=== PATIENT | female | born 1950 | race Hispanic/Latino ===

== ENCOUNTER 2016-12-11 06:53 | Day surgery (SDC) | payer MEDICAID ==
[2016-12-11] MEDS ORDERED: ROBINUL ONE (09:00)
[2016-12-11] MEDS ORDERED: NACL 0.9% 1000 ML 1,000 ML IV SCH (09:00)
[2016-12-11] MEDS ORDERED: XYLOCAINE MPF 2% ONE (09:00)
--- NOTE | 2016-12-11 09:51 | Short Stay Summary ---
Short Stay Documentation Date of service: 12/11/16 Narrative H&P: 66 year old presents for colonoscopy for evaluation of hematochezia. - History Principal diagnosis: hematochezia H&P: obtained from office Past Medical History: other (cervical dysplasia recurrent post LEEP) Past Surgical History: Other (LEEP) Social history: smoking - Allergies and Medications Current Medications: Allergies codeine Adverse Reaction (Verified 12/11/16 08:18) Dizziness Home Medications Medication Instructions Recorded Confirmed Last Taken Type Frumk-Apdgsdn-Alzulhge Tablet 1 tab PO DAILY 12/11/16 12/11/16 12/03/16 History Active Medications Sodium Chloride (Nacl 0.9% 1000 Ml) 1,000 mls @ 50 mls/hr IV DIRECT SHARONA - Physical exam General appearance: no acute distress, well-nourished HEENT: PERRLA, EOMI Lungs: Clear to auscultation Heart: Regular rate, Normal S1, Normal S2 Gastrointestinal: normal, no tenderness, no distended, no masses, no guarding, no organomegaly, no hepatomegaly, no splenomegaly, no obese Extremities: No edema Neurological: Normal speech - Hospital course Hospital course: Uneventful colonoscopy revealed 2.5-3 cm broad based polyp proximal rectum with central dimple, will be referred for EMR (endoscopic mucosal resection.) Additional findings: diverticulosis. - Disposition Condition at discharge: Good Disposition: DISCHARGED TO HOME OR SELFCARE - Discharge Diagnoses (1) Colon polyp Status: Acute Qualifiers: Colon polyp type: C Colon location: C Inflammatory colon polyp complication status: I (2) Diverticulosis Status: Acute Qualifiers: Diverticulosis site: D Diverticulosis bleeding: D (3) Hematochezia Status: Acute Short Stay Discharge Plan Activity: other (no driving today) Diet: regular Additional Instructions: 1. Patient to call to schedule EMR if she does not hear from office staff this week. 2. Repeat colonoscopy in 3 years. 3. Stop smoking. 4. First-degree relatives (siblings, children, parents if in good health) should have colonoscopy beginning age 40 rather than age 50. Follow up with: NATALI CARDOSO MD [Primary Care Provider] - 7 Days
--- NOTE | 2016-12-11 09:57 | Anesthesia Consultation ---
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 Severely chacetic. 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
--- NOTE | 2016-12-11 09:57 | Anesthesia Day of Surgery ---
Anesthesia Day of Surgery - Day of Surgery Patient Examined: Yes Patient H&P Reviewed: Yes Patient is NPO: Yes Beta Blockers: No (vital WNL)
[2016-12-11] MEDS ORDERED: DIPRIVAN 10 MG/ML IV ONE ×2 (10:25)
--- NOTE | 2016-12-11 10:34 | Operative Report ---
Operative Report Operative Report: Date of procedure: 12/11/2016 Preprocedure diagnosis: Hematochezia. No prior colon screening. Post procedure diagnosis: Large rectal polyp, diverticulosis Procedure name(s): Colonoscopy Surgeon: Guerrero Greene MD Anesthesia: Monitored anesthesia care EBL: None Procedure: The indications, techniques, potential complications and alternatives , had been discussed in full detail prior to the date of the exam, and once again on the day of the exam. Questions were encouraged and answered, and consent was thereby obtained. The patient was placed in the left lateral decubitus position, and was medicated by anesthesia services. See the anesthesia records for details. The anal sphincter was digitally dilated. The digital exam was unremarkable. The tip of a [employer] video colonoscope was inserted through the anal sphincter and into the rectal vault. It was advanced proximally and continuous visualization of the lumen to the cecum without difficulty. Abdominal pressure was employed to minimize loop formation and thereby facilitate instrument advancement. The prep was good and landmarks were identified without difficulty. No pathology was seen in the cecum. The appendiceal orifice and ileocecal valve appeared normal. From the cecum, the instrument was slowly withdrawn with careful circumferential examination of the colonic mucosa. A few diverticula were seen in the ascending colon and hepatic flexure. No pathology was seen in the transverse colon, splenic flexure or descending colon. A few diverticula were seen in the sigmoid colon. In the proximal rectum a 2.5-3 cm polyp on a very broad base with a tiny 5 mm sessile satellite lesion, was noted. The mass of the large polyp had a central dimple bothersome for posslible deep invasion. Inspection of the lesion revealed it to be broad-based and it was elected to leave it in place rather than attempt convention snare polypectomy. No other pathology was seen in the remainder of the rectum on forward or retroflexed views. The instrument was fully withdrawn. The procedure was very well tolerated. Postprocedure she was monitored in the recovery area of the GI lab to ensure stability prior to her release. See the outpatient record for details regarding instructions to patient, medications and plans for follow-up. Final diagnosis: 1. Proximal rectal polyp, 2.5-3 cm, large with central dimple suggesting possible invasion, on a very broad base, with small satellite lesion. Will be referred for endoscopic mucosal resection rather than attempting conventional snare polypectomy in this setting. 2. Diverticulosis coli Guerrero Greene M.D. Dictated 12/11/2016 at 10:28 AM
--- NOTE | 2016-12-11 10:40 | Anesthesia Day of Surgery ---
Anesthesia Day of Surgery - Day of Surgery Patient Examined: Yes Patient H&P Reviewed: Yes Patient is NPO: Yes
--- NOTE | 2016-12-11 10:41 | Anesthesia Consultation ---
Anesthesia Consult and Med Hx Date of service: 12/11/16 - Airway Anesthetic Teeth Evaluation: Good ROM Head & Neck: Adequate Mental/Hyoid Distance: Adequate Mallampati Class: Class II Intubation Access Assessment: Probably Good - Pulmonary Exam CTA: Yes - Cardiac Exam Cardiac Exam: RRR - Pre-Operative Health Status ASA Pre-Surgery Classification: ASA2 Proposed Anesthetic Plan: MAC - Pulmonary Hx Smoking: Yes
--- NOTE | 2016-12-11 10:41 | Post Anesthesia Evaluation ---
- Post Anesthesia Evaluation Patient Participated: Yes Airway Patent: Yes Stable Respiratory Function: Yes Nausea/Vomiting: No Temp > 96.8F: Yes Pain Manageable: Yes Adequeate Hydration: Yes Anesthesia Complications: No Block Receding Appropriately: Not Applicable Patient on Ventilator: No
[2016-12-11 11:00] VITALS: BP 115/86
[2016-12-12] MEDS ORDERED: ROBINUL ONE (13:18)
[2016-12-12] MEDS ORDERED: XYLOCAINE MPF 2% ONE (13:18)
== END 2016-12-11 06:54 | disposition home or self-care (01) ==
LOC: GIO 06:53
PROVIDERS: ATTEND Internal Medicine Gastroenterology
DX: K62.1 Rectal polyp (principal); K57.30 Diverticulosis of large intestine without perforation or abscess without bleeding; F17.210 Nicotine dependence, cigarettes, uncomplicated; Z98.890 Other specified postprocedural states
CPT/HCPCS: 45378; J2704; J7030

== ENCOUNTER 2017-12-02 08:37 | Emergency (ER) | payer MEDICAID, MEDICARE ==
[2017-12-02] MEDS ORDERED: CATAPRES PO ONE (09:17)
[2017-12-02] MEDS ORDERED: MOTRIN PO ONE (09:21)
--- NOTE | 2017-12-02 09:21 | Emergency Department Report ---
ED ENT HPI - General Chief complaint: Earache Stated complaint: LEFT EAR PAIN Time Seen by Provider: 12/02/17 09:14 Source: patient Mode of arrival: Ambulatory Limitations: No Limitations - History of Present Illness Initial comments: This is a 67-year-old female nontoxic, well nourished in appearance, no acute signs of distress presents to the ED with c/o of left earache x2 days. Patient stated that she developed decreased hearing the past 2 days. Patient stated tried using OTC peroxide with no relief. Patietn denies mastoid or tragus tenderness. Denies any ear canal drainage. Patient denies any headache, stiff neck, nausea, vomiting, chest pain, shortness of breathe, abdominal pain, dizziness. Patient stated allergies to codeine. Denies significant past medical history. MD complaint: ear pain -: days(s) (2) Location: L ear Severity: mild Severity scale (0 -10): 8 Quality: aching Consistency: constant Improves with: none Worsens with: none Associated Symptoms: denies: fever, cough, gum swelling, toothache, pain with swallowing, sore throat, tinnitus, hearing loss, discharge from ear, rhinorrhea - Related Data Home Medications Medication Instructions Recorded Confirmed Last Taken Tlayq-Ceoabtx-Nwnjpshr Tablet 1 tab PO DAILY 12/11/16 12/11/16 12/03/16 Previous Rx's Medication Instructions Recorded Last Taken Type Amoxicillin [Amoxicillin TAB] 875 mg PO BID #20 tablet 12/02/17 Unknown Rx Ciprofloxacin 0.2%(Nf) 4 drops AD TID #1 droperette 12/02/17 Unknown Rx [Ciprofloxacin Otic 0.2%(Nf)] amLODIPine [Norvasc] 5 mg PO DAILY #30 tab 12/02/17 Unknown Rx Allergies Allergy/AdvReac Type Severity Reaction Status Date / Time codeine AdvReac Dizziness Verified 12/02/17 08:39 ED Dental HPI - General Chief complaint: Earache Stated complaint: LEFT EAR PAIN Time Seen by Provider: 12/02/17 09:14 Source: patient Mode of arrival: Ambulatory Limitations: No Limitations - Related Data Home Medications Medication Instructions Recorded Confirmed Last Taken Fueli-Seywrhz-Nikrpenh Tablet 1 tab PO DAILY 12/11/16 12/11/16 12/03/16 Previous Rx's Medication Instructions Recorded Last Taken Type Amoxicillin [Amoxicillin TAB] 875 mg PO BID #20 tablet 12/02/17 Unknown Rx Ciprofloxacin 0.2%(Nf) 4 drops AD TID #1 droperette 12/02/17 Unknown Rx [Ciprofloxacin Otic 0.2%(Nf)] amLODIPine [Norvasc] 5 mg PO DAILY #30 tab 12/02/17 Unknown Rx Allergies Allergy/AdvReac Type Severity Reaction Status Date / Time codeine AdvReac Dizziness Verified 12/02/17 08:39 ED Review of Systems ROS: Stated complaint: LEFT EAR PAIN Other details as noted in HPI Constitutional: denies: chills, fever Eyes: denies: eye pain, eye discharge, vision change ENT: ear pain. denies: throat pain Respiratory: denies: cough, shortness of breath, wheezing Cardiovascular: denies: chest pain, palpitations Endocrine: no symptoms reported Gastrointestinal: denies: abdominal pain, nausea, diarrhea Genitourinary: denies: urgency, dysuria, discharge Musculoskeletal: denies: back pain, joint swelling, arthralgia Skin: denies: rash, lesions Neurological: denies: headache, weakness, paresthesias Psychiatric: denies: anxiety, depression Hematological/Lymphatic: denies: easy bleeding, easy bruising ED Past Medical Hx - Past Medical History Previous Medical History?: No - Surgical History Additional Surgical History: colon surgery - Social History Smoking Status: Current Every Day Smoker Substance Use Type: None - Medications Home Medications: Home Medications Medication Instructions Recorded Confirmed Last Taken Type Laomb-Ugxitlg-Sllqiozj Tablet 1 tab PO DAILY 12/11/16 12/11/16 12/03/16 History Amoxicillin [Amoxicillin TAB] 875 mg PO BID #20 tablet 12/02/17 Unknown Rx Ciprofloxacin 0.2%(Nf) 4 drops AD TID #1 droperette 12/02/17 Unknown Rx [Ciprofloxacin Otic 0.2%(Nf)] amLODIPine [Norvasc] 5 mg PO DAILY #30 tab 12/02/17 Unknown Rx ED Physical Exam - General Limitations: No Limitations General appearance: alert, in no apparent distress - Head Head exam: Present: atraumatic, normocephalic - Eye Eye exam: Present: normal appearance Pupils: Present: normal accommodation - ENT ENT exam: Present: normal orophraynx, mucous membranes moist, normal external ear exam - Expanded ENT Exam Expanded Ear exam: Present: normal external inspection TM/Canal exam: Erythema: Right TM, Bulging: Right TM, Cerumen Impaction: Right TM Mouth exam: Present: normal external inspection, tongue normal. Absent: drooling, trismus, muffled voice, tongue elevation, laceration Teeth exam: Present: normal inspection Throat exam: Positive: normal inspection, other (Uvula midline. ). Negative: tonsillar erythema, tonsillomegaly, tonsillar exudate, R peritonsillar mass, L peritonsillar mass - Neck Neck exam: Present: normal inspection, full ROM. Absent: tenderness, meningismus, lymphadenopathy - Respiratory Respiratory exam: Present: normal lung sounds bilaterally. Absent: respiratory distress, wheezes, rales, rhonchi, stridor - Cardiovascular Cardiovascular Exam: Present: regular rate, normal rhythm, normal heart sounds. Absent: bradycardia, tachycardia, irregular rhythm, systolic murmur, diastolic murmur, rubs, gallop - GI/Abdominal GI/Abdominal exam: Present: soft, normal bowel sounds - Extremities Exam Extremities exam: Present: normal inspection, full ROM, normal capillary refill - Back Exam Back exam: Present: normal inspection, full ROM - Neurological Exam Neurological exam: Present: alert, oriented X3, normal gait - Psychiatric Psychiatric exam: Present: normal affect, normal mood - Skin Skin exam: Present: warm, dry, intact, normal color. Absent: rash ED Course Vital Signs 12/02/17 12/02/17 12/02/17 08:40 09:21 09:26 Temperature 98 F Pulse Rate 77 77 Respiratory 18 18 Rate Blood Pressure 182/111 182/111 Blood Pressure [Left] O2 Sat by Pulse 100 Oximetry 12/02/17 10:18 Temperature Pulse Rate 67 Respiratory 16 Rate Blood Pressure Blood Pressure 123/71 [Left] O2 Sat by Pulse 98 Oximetry - Reevaluation(s) Reevaluation #1: 12/02/17 09:22 Patient is speaking in full sentences with no signs of distress noted. - Ear Wax Removal Left Ear Cerumenolytic Used: Other (hydrogen peroxide mixed with warm water equally mixed ) Ear Canal Irrigated by: other (myself) Ear Canal Irrigated With: warm saline using syringe/angiocath Ear Canal(s) Curettaged: plastic scoops Results: Re-examined: cerumen removed completel TM Visible: TM(s) erythematous, other (TM bulging) Ear Canal: atraumatic Patient Tolerated Procedure: well, no complications Complications: no problems ED Medical Decision Making - Medical Decision Making This is a 57-year-old female that presents with otitis media and hypertension. Patient is stable and was examined by me. The earwax has been removed successfully. Patient denies any history of HTN and does have a PCP. Patient receievd Catpress in the ED and I will start patient with Norvasc at [facility]. She was instructed to keep a daily dairy of blood pressure and present it to primary care doctor. Patient was also instructed to Follow-up with a primary care doctor in 3-5 days or if symptoms worsen and continue return to emergency room as soon as possible. At time of discharge, the patient does not seem toxic or ill in appearance. No acute signs of distress noted. Patient agrees to discharge treatment plan of care. No further questions noted by the patient. Critical care attestation.: If time is entered above; I have spent that time in minutes in the direct care of this critically ill patient, excluding procedure time. ED Disposition Clinical Impression: Hypertension Qualifiers: Hypertension type: unspecified Qualified Code(s): I10 - Essential (primary) hypertension Otitis media Qualifiers: Otitis media type: unspecified Laterality: left Qualified Code(s): H66.92 - Otitis media, unspecified, left ear Cerumen impaction Qualifiers: Laterality: left Qualified Code(s): H61.22 - Impacted cerumen, left ear Disposition: DC- TO HOME OR SELFCARE Is pt being admited?: No Does the pt Need Aspirin: No Condition: Stable Instructions: Amlodipine (By mouth), Cerumen Impaction (ED), Otitis Media (ED) , Hypertension (ED) Additional Instructions: Follow-up with a primary care doctor in 3-5 days or if symptoms worsen and continue return to emergency room as soon as possible. Keep a daily dairy of blood pressure and present it to primary care doctor. Prescriptions: amLODIPine [Norvasc] 5 mg PO DAILY #30 tab Amoxicillin [Amoxicillin TAB] 875 mg PO BID #20 tablet Ciprofloxacin 0.2%(Nf) [Ciprofloxacin Otic 0.2%(Nf)] 4 drops AD TID #1 droperette Referrals: NATALI CARDOSO MD [Primary Care Provider] - 3-5 Days FLACO BOLAÑOS MD [Staff Physician] - 3-5 Days [facility] [Outside] - 3-5 Days [facility] [Outside] - 3-5 Days Forms: Work/School Release Form(ED)
[2017-12-02] MEDS ORDERED: HYDROGEN PEROXIDE ONE (09:28)
[2017-12-02] MEDS ORDERED: HYDROGEN PEROXIDE TP ONE (09:29)
[2017-12-02 10:18] VITALS: BP 123/71
== END 2017-12-02 11:20 | disposition home or self-care (01) ==
LOC: ED 08:37
DX: H61.22 Impacted cerumen, left ear (principal); H66.92 Otitis media, unspecified, left ear; I10 Essential (primary) hypertension; Z88.5 Allergy status to narcotic agent